=== PATIENT | female | born 1990 | race Caucasian/White ===

== ENCOUNTER 2020-03-14 09:28 | Emergency (ER) | payer OTHER, SELFPAY ==
--- NOTE | 2020-03-14 09:30 | XR_ITS ---
EXAMINATION: XR CHEST, PORTABLE CLINICAL INFORMATION: Shortness of breath COMPARISON: None TECHNIQUE: Portable upright AP view of the chest is obtained. FINDINGS: The lungs are clear. There is no airspace consolidation, pleural reaction, or effusion. The costophrenic sulci are clear. The heart is normal in size. The vascularity is normal. The hilar and mediastinal contours are unremarkable. There is mild dextrocurvature thoracic spine. Bilateral nipple piercings present. IMPRESSION: Lungs clear.
[2020-03-14 09:32] VITALS: BP 128/90; PULSE 97; RESP 24; TEMP 37.3; O2SAT 91; BMI 21.9
--- NOTE | 2020-03-14 09:48 | ED.ASTHMA ---
HPI - Asthma General Chief Complaint: Asthma Stated Complaint: SOB Time Seen by Provider: 03/14/20 09:30 Related Data Home Medications Medication Instructions Recorded Confirmed albuterol sulfate [Ventolin HFA] 2 puff INHALATION Q4H PRN 03/14/20 03/14/20 cetirizine [Zyrtec] 10 mg PO DAILY 03/14/20 03/14/20 doxycycline hyclate 100 mg PO BID 03/14/20 03/14/20 fluticasone furoate-vilanterol 1 inh INHALATION DAILY 03/14/20 03/14/20 [Breo Ellipta] fluticasone propionate [Flonase] 1 spray INTRANASAL DAILY 03/14/20 03/14/20 ibuprofen 600 mg PO TID PRN 03/14/20 03/14/20 montelukast [Singulair] 10 mg PO BEDTIME 03/14/20 03/14/20 prednisone 60 mg PO DAILY 03/14/20 03/14/20 Allergies Allergy/AdvReac Type Severity Reaction Status Date / Time No Known Allergies Allergy Unverified 02/29/20 19:51 [No Known Allergies*] Review of Systems Constitutional: Constitutional: Denies chills, Denies excessive sweating, Denies fever(s), Denies headache(s), Denies stops breathing during sleep, Denies weight gain and Denies weight loss Eyes: Eyes: Reports as per HPI ENT: Denies headache(s), Denies lip swelling, Denies nose pain and Denies sore throat Cardiovascular: Cardiovascular: Reports chest pain (with cough ) and Reports dyspnea Respiratory: Respiratory: Reports pain with cough and Reports dyspnea Gastrointestinal: Gastrointestinal: Denies abdominal pain Genitourinary: Genitourinary: Denies abnormal menses Integumentary/Breasts: Skin/Breast: Reports system reviewed and no additional complaints, except as docu Neurologic: Denies headache(s) Psychiatric: Psychiatric: Reports no additional psychiatric complaints Endocrine: Endocrine: Denies excessive sweating Hematologic/Lymphatic: Hematologic/Lymphatic: Reports no additional hematologic/lymphatic complaints Allergic/Immunologic: Allergic/Immunologic: Denies lip swelling PMFSH Past Medical History Attestation statement: The following information was validated with the patient. Medical History (Updated 03/14/20 @ 13:11 by Fabio Herrera NP) Asthma No known health problems Social History Social History Advance Directives: No Advance Directives Information Provided: No Physical Exam Vital Signs and I&O and Narrative: Vital Signs and I&O: Vital Signs Temp 99.1 F 03/14/20 09:32 Pulse 81 03/14/20 12:36 Resp 17 03/14/20 12:36 BP 112/67 03/14/20 12:36 Pulse Ox 97 03/14/20 12:36 Intake & Output 03/13/20 03/14/20 03/14/20 18:59 06:59 18:59 Intake Total 1050.000 / 1050.00 0 Balance 1050.000 / 1050.00 0 Weight 54.431 kg Intake: Intake, IV Amoun t 1050.000 / 1050.00 0 Magnesium Sulf ate/H2O 2 gm In 50.000 / 50.000 50 ml @ 50 mls /hr IV ONCE ONE Rx#:[id number] 0.9 % Sodium C hloride 1,000 ml 1000.00 / 1000.00 @ 999 mls/hr I VCONT .Q1H1M BJORN Rx#:[id number] Body Mass Index 21.9 Const: General: cooperative, in distress (Slight tachypnea, hypoxia at 90 % ra ) and anxious Orientation/consciousness: patient oriented x3 Limitations: no limitations HENMT: Head: Yes normal to inspection Ears: hearing grossly normal bilaterally Eyes: General: appearance normal, both eyes and all related structures Neck: Neck: Yes normal visual inspection Chest: Chest palpation & inspection: normal inspection of the chest Resp: Other: moderate respiratory distress Effort & Inspection: audible wheezes and Actively coughing Auscultation: wheezes Cardio: Jugular venous distension: no JVD Palpation: normal PMI Rate: tachycardic Rhythm: regular rhythm GI: Inspection: Yes normal to inspection Skin: General skin exam: no rashes or lesions noted Neuro: General: patient oriented x3 Extrem: General: Yes normal to inspection Psych: Appearance: grossly normal Course Course Hospital Course: interview 29-year-old female history significant for asthma with multiple hospitalizations most recently 2 weeks ago, normally goes to [facility]/ [facility]. She is being followed by pulmonology here Dr. Kim who she actually saw yesterday for shortness of breath she reports that in office she was hypoxic in the 70s she got treatment and she was started on some new medications. She shows me a medication list that shows prednisone, doxycycline. States she has been taking his however her shortness of breath has been getting worse. Upon arrival pulse ox 90 %, tachypneic speaking in couple word sentences. Does appear slightly anxious. Lung sounds diffuse wheezing and diminished in the bases. will need labs, chest x-ray, EKG. Will treat with IV fluids, IV magnesium 2 g, Solu-Medrol, hour long neb. She denies any recent URI symptoms. No signs or symptoms of sepsis at this time. No URI symptoms. . - complete hour long neb. Lung sounds still coerced. Pulse ox 91-93%. Will go ahead and give her 2nd hour long neb. Labs overall stable. Chest x-ray clear. No leukocytosis. Afebrile. No signs or symptoms of infection. Respiratory panel pending pain plan for admission. - Page placed to hospitalist services for admission. Who came to bedside to evaluate the patient. Patient completed 2nd hour long neb pulse ox 94-95% on room air. 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 Advised given her history of significant asthma she should be monitored for at least 24 hours and discharge May risk her outcome. She states she does not want to stay. Will sign AMA. Advised to return / call EMS right away if symptoms worsen. Will call her PCP /pulmonology for follow-up. MDM - Asthma Differential Diagnosis Differential diagnosis: Likely Acute exacerbation, Status asthmaticus, Acute asthmatic bronchitis and Pneumonia; Unlikely PE, Pulmonary edema systolic, Pulmonary edema dystolic, ARDS, Pneumothorax and Foreign body in trachea Medical Records Attestation: I reviewed the patient's medical records. Lab Data Result diagrams: 03/14/20 10:22 03/14/20 10:22 Labs: Lab Results 03/14/20 03/14/20 03/14/20 Range/Units 09:47 10:22 10:22 WBC 8.9 (4.8-10.8) X10*3/uL RBC 5.29 (4.20-5.50) X10*6/uL Hgb 16.7 H (12.0-16.0) g/dl Hct 50.3 H (37-47) % MCV 95.1 (80-98) fL MCH 31.6 (27.0-33.0) pg MCHC 33.2 (31.0-35.0) g/dl RDW 11.7 (11.0-16.0) % Plt Count 263 (160-400) X10*3/uL MPV 10.1 (9.4-12.3) fL Immature Gran % (Auto) 0.3 (0.0-0.4) % Neut % (Auto) 68.5 (45-73) % Lymph % (Auto) 21.9 (20-40) % Frio % (Auto) 7.4 (2-11) % Eos % (Auto) 1.6 (0-4) % Baso % (Auto) 0.3 (0-2) % Neut # (Auto) 6.1 (2.0-8.3) X10*3/uL Lymph # (Auto) 2.0 (1.2-4.9) X10*3/uL Frio # (Auto) 0.7 (0.1-1.2) X10*3/uL Eos # (Auto) 0.1 (0.0-0.4) X10*3/uL Baso # (Auto) 0.0 (0.0-0.2) X10*3/uL Abs Immat Gran (auto) 0.03 (0.00-0.03) X10*3/uL Absolute Nucleated RBC 0.000 (0.0-0.012) X10*3/uL Nucleated RBC % (auto) 0.0 (0.0-0.2) /100WBC Sodium (135-145) mmol/L Potassium (3.3-5.1) mmol/l Chloride (96-108) mmol/L Carbon Dioxide (22-29) mmol/L Anion Gap (12-20) BUN (9-16) mg/dL Creatinine (0.5-1.4) mg/dL Estim Creat Clear Calc Estimated GFR Random Glucose (60-115) mg/dL Lactic Acid 1.2 (0.5-2.0) mmol/L Calcium (8.4-10.2) mg/dL Troponin I High Sens (<3.5-17.0) ng/L Urine Color Urine Appearance Urine pH (5.0-8.0) Ur Specific Mcclelland (1.005-1.025) Urine Protein (NEG-TRACE) MG/DL Urine Glucose (UA) (NEG) MG/DL Urine Ketones (NEG) MG/DL Urine Blood (NEG) Urine Nitrite (NEG) Ur Leukocyte Esterase (NEG) Urine Test NEGATIVE (NEGATIVE) 03/14/20 03/14/20 03/14/20 Range/Units 10:22 10:22 11:22 WBC (4.8-10.8) X10*3/uL RBC (4.20-5.50) X10*6/uL Hgb (12.0-16.0) g/dl Hct (37-47) % MCV (80-98) fL MCH (27.0-33.0) pg MCHC (31.0-35.0) g/dl RDW (11.0-16.0) % Plt Count (160-400) X10*3/uL MPV (9.4-12.3) fL Immature Gran % (Auto) (0.0-0.4) % Neut % (Auto) (45-73) % Lymph % (Auto) (20-40) % Frio % (Auto) (2-11) % Eos % (Auto) (0-4) % Baso % (Auto) (0-2) % Neut # (Auto) (2.0-8.3) X10*3/uL Lymph # (Auto) (1.2-4.9) X10*3/uL Frio # (Auto) (0.1-1.2) X10*3/uL Eos # (Auto) (0.0-0.4) X10*3/uL Baso # (Auto) (0.0-0.2) X10*3/uL Abs Immat Gran (auto) (0.00-0.03) X10*3/uL Absolute Nucleated RBC (0.0-0.012) X10*3/uL Nucleated RBC % (auto) (0.0-0.2) /100WBC Sodium 141 (135-145) mmol/L Potassium 4.4 (3.3-5.1) mmol/l Chloride 103 (96-108) mmol/L Carbon Dioxide 26 (22-29) mmol/L Anion Gap 16 (12-20) BUN 9 (9-16) mg/dL Creatinine (0.5-1.4) mg/dL Estim Creat Clear Calc 80.2 Estimated GFR > 60 Random Glucose 92 (60-115) mg/dL Lactic Acid (0.5-2.0) mmol/L Calcium 10.1 (8.4-10.2) mg/dL Troponin I High Sens < 3.5 (<3.5-17.0) ng/L Urine Color YELLOW Urine Appearance CLEAR Urine pH 6.0 (5.0-8.0) Ur Specific Mcclelland 1.010 (1.005-1.025) Urine Protein NEG (NEG-TRACE) MG/DL Urine Glucose (UA) NEG (NEG) MG/DL Urine Ketones NEG (NEG) MG/DL Urine Blood NEG (NEG) Urine Nitrite NEG (NEG) Ur Leukocyte Esterase NEG (NEG) Urine Test (NEGATIVE) Critical Care Time Critical Care Time Critical Care Time: Yes Total Critical Care Time: 65 Attestation: required hour long nebs x2, multiple visits to bedside, close monitoring of respiratory status. Discharge Plan Discharge Clinical Impression: Asthma with acute exacerbation Qualifiers: Asthma severity: unspecified severity Asthma persistence: unspecified Qualified Code(s): J45.901 - Unspecified asthma with (acute) exacerbation Patient Disposition: Left Against Medical Advice Instructions: Asthma (ED) Prescriptions: No Action doxycycline hyclate 100 mg Capsule 100 mg PO BID RF: 0 cetirizine [Zyrtec] 10 mg Tablet 10 mg PO DAILY RF: 0 montelukast [Singulair] 10 mg Tablet 10 mg PO BEDTIME RF: 0 ibuprofen 600 mg Tablet 600 mg PO TID PRN (Reason: Pain (Scale Score 1-3)) RF: 0 albuterol sulfate [Ventolin HFA] 90 mcg/actuation Hfa Aerosol Inhaler 2 puff INHALATION Q4H PRN (Reason: Shortness Of Breath) RF: 0 fluticasone propionate [Flonase] 50 mcg/actuation Junior,Suspension 1 spray INTRANASAL DAILY RF: 0 Breo Ellipta 200-25 mcg/dose Blister With Device 1 inh INHALATION DAILY RF: 0 prednisone 20 mg Tablet 60 mg PO DAILY RF: 0
[2020-03-14] MEDS: methylPREDNISolone Sod Succ/PF 125 MG/2 ML VIAL IVPUSH (10:07)
[2020-03-14] MEDS: Ipratropium Bromide 0.5 MG/2.5 ML SOLUTION INHALE (10:07)
[2020-03-14] MEDS: Magnesium Sulfate/H2O 2 GM/50 ML PIGGYBACK IV (10:07)
[2020-03-14] MEDS: Albuterol Sulfate (0.083%) 2.5 MG/3 ML VIAL.NEB 7.5 MG INHALE (10:08)
[2020-03-14 10:30] LABS: MANUAL DIFF FLAG NO
[2020-03-14 10:33] LABS: Basophils Percent Auto 0.3 % (0-2); Eosinophils Absolute Auto 0.1 X10*3/uL (0.0-0.4); Eosinophils Percent Auto 1.6 % (0-4); Hematocrit 50.3 % (37-47); Hemoglobin 16.7 g/dl (12.0-16.0); Imm Gran Abs Auto 0.03 X10*3/uL (0.00-0.03); Imm Gran Pct Auto 0.3 % (0.0-0.4); Lymphocytes Percent Auto 21.9 % (20-40); Mean Corpuscular HGB Conc 33.2 g/dl (31.0-35.0); Mean Corpuscular Hemoglobin 31.6 pg (27.0-33.0); Mean Corpuscular Volume 95.1 fL (80-98); Mean Platelet Volume 10.1 fL (9.4-12.3); Monocytes Absolute Auto 0.7 X10*3/uL (0.1-1.2); Monocytes Percent Auto 7.4 % (2-11); Neutrophils Absolute Auto 6.1 X10*3/uL (2.0-8.3); Neutrophils Percent Auto 68.5 % (45-73); Platelet Count 263 X10*3/uL (160-400); Red Blood Count 5.29 X10*6/uL (4.20-5.50); Red Cell Distribution Width 11.7 % (11.0-16.0); White Blood Count 8.9 X10*3/uL (4.8-10.8)
[2020-03-14 10:56] LABS: Lactic Acid 1.2 mmol/L (0.5-2.0)
[2020-03-14 10:58] LABS: Anion Gap 16 (12-20); Blood Urea Nitrogen 9 mg/dL (9-16); Calcium 10.1 mg/dL (8.4-10.2); Carbon Dioxide 26 mmol/L (22-29); Chloride 103 mmol/L (96-108); Creatinine Clr Calc Pharmacy 80.2; Estimated Glomerular Filt Rate > 60; Glucose Random 92 mg/dL (60-115); Potassium 4.4 mmol/l (3.3-5.1); Sodium 141 mmol/L (135-145)
[2020-03-14 11:03] LABS: Troponin-I High Sensitivity < 3.5 ng/L (<3.5-17.0)
[2020-03-14 11:09] VITALS: BP 101/62; PULSE 76; RESP 20
[2020-03-14] MEDS: 0.9 % Sodium Chloride 1,000 ML 999 ML IVCONT (11:22)
[2020-03-14 11:31] LABS: Glucose Urine UA NEG (NEG); Leukocyte Esterase Urine NEG (NEG); Nitrite Urine NEG (NEG); Urine Blood NEG (NEG); Urine Ketones NEG (NEG); Urine Protein NEG (NEG-TRACE)
[2020-03-14 11:33] LABS: Appearance Urine CLEAR; Color Urine YELLOW
[2020-03-14 12:08] LABS: UPreg QC Valid YES; Urine Pregnancy NEGATIVE (NEGATIVE)
[2020-03-14 12:36] VITALS: BP 112/67; PULSE 81; RESP 17; O2SAT 97
[2020-03-14 13:15] LABS: Adenovirus PCR Not Detected (Not Detect.); Bordetella parapertussis PCR Not Detected (Not Detect.); Bordetella pertussis PCR Not Detected (Not Detect.); Chlamydia pneumoniae PCR Not Detected (Not Detect.); Coronavirus 229E PCR Not Detected (Not Detect.); Coronavirus HKU1 PCR Not Detected (Not Detect.); Coronavirus NL63 PCR Not Detected (Not Detect.); Coronavirus OC43 PCR Not Detected (Not Detect.); Human metapneumovirus PCR Not Detected (Not Detect.); Influenza A PCR Not Detected (Not Detect.); Influenza B PCR Not Detected (Not Detect.); Mycoplasma pneumoniae PCR Not Detected (Not Detect.); Parainfluenza 1 PCR Not Detected (Not Detect.); Parainfluenza 2 PCR Not Detected (Not Detect.); Parainfluenza 3 PCR Not Detected (Not Detect.); Parainfluenza 4 PCR Not Detected (Not Detect.); RSV PCR Not Detected (Not Detect.); Rhino/Enterovirus PCR Not Detected (Not Detect.); SARS-CoV-2 PCR Not Detected (Not Detect.)
[2020-03-14 13:19] VITALS: BP 126/76; PULSE 88; RESP 20; TEMP 36.8
[2020-03-14 13:39] LABS: RBC Urine 0 /HPF (0); Squamous Epithelial Cell Urine 1+ /LPF; WBC Urine 0 /HPF (0-4)
[2020-03-14 13:40] LABS: Mucus Urine 1+ /LPF; Renal Epithelial Cells Urine TRACE /LPF
== END 2020-03-14 13:29 | disposition left against medical advice (07) ==
PROVIDERS: Nurse Practitioner Primary Care; Emergency Provider Emergency Medicine; PCP Hospitalist
DX: J45.901 Unspecified asthma with (acute) exacerbation (principal)
CPT/HCPCS: 36415; 71045; 80048; 81001; 81025; 83605; 84484; 85025; 87040; 87633; 96361; 96374; 96375; 99283; 99291; J2930; J3475

== ENCOUNTER 2020-05-17 13:11 | Outpatient (REF) | payer OTHER, SELFPAY ==
--- NOTE | 2020-05-17 13:17 | XR_ITS ---
EXAMINATION: XR RIBS, RIGHT CLINICAL INFORMATION: Pain anterior right ribs COMPARISON: Chest radiographs 03/14/2020 TECHNIQUE: Frontal view chest and 3 views right ribs are obtained for a total of 4 views. FINDINGS: There are fractures right lateral fifth, sixth, seventh, and eighth ribs. No visible bony destructive process. The lungs are clear. There is no pneumothorax or pleural reaction. No effusion. No pneumomediastinum. The costophrenic sulci are clear. The heart is normal in size. The hilar and mediastinal contours are normal. There is mild curvature thoracic spine. No free air beneath the diaphragms. There are bilateral nipple piercings. XR/XR ribs RT min 3V w CXR1V IMPRESSION: 1. Right lateral rib fractures, 5th, 6th, 7th, and 8th. 2. No pneumothorax, airspace consolidation, or effusion. Mediastinal contours normal.
== END 2020-05-17 13:12 | disposition home or self-care (01) ==
LOC: HO.XRAY 13:11
PROVIDERS: PCP Hospitalist; Visit Provider Hospitalist
DX: S22.41XD Multiple fractures of ribs, right side, subsequent encounter for fracture with routine healing (principal)
CPT/HCPCS: 71101

== ENCOUNTER 2020-07-05 09:22 | Outpatient (REF) | payer MEDICAID, SELFPAY ==
--- NOTE | 2020-07-05 10:35 | XR_ITS ---
EXAMINATION: XR CHEST CLINICAL INFORMATION: J45.50 - Severe persistent asthma, uncomplicated COMPARISON: Chest and right ribs 05/17/2020, portable chest 03/14/2020 TECHNIQUE: 2 views of the chest were obtained. FINDINGS: There is mild coarsening central bronchiolar markings. No bronchiectasis. No airspace solid lesion or groundglass opacity or effusion. The heart is normal in size. The hilar and mediastinal contours are normal. Again, there is dextrocurvature thoracic spine and bilateral nipple piercings. XR/XR chest 2V IMPRESSION: Mild coarsening central bronchiolar markings. Lungs clear.
[2020-07-05 10:44] LABS: MANUAL DIFF FLAG NO
[2020-07-05 10:49] LABS: Basophils Absolute Auto 0.1 X10*3/uL (0.0-0.2); Basophils Percent Auto 1.6 % (0-2); Eosinophils Percent Auto 13.5 % (0-4); Hematocrit 47.9 % (37-47); Hemoglobin 16.5 g/dl (12.0-16.0); Imm Gran Abs Auto 0.04 X10*3/uL (0.00-0.03); Imm Gran Pct Auto 0.5 % (0.0-0.4); Lymphocytes Absolute Auto 1.4 X10*3/uL (1.2-4.9); Lymphocytes Percent Auto 18.9 % (20-40); Mean Corpuscular HGB Conc 34.4 g/dl (31.0-35.0); Mean Corpuscular Hemoglobin 31.1 pg (27.0-33.0); Mean Corpuscular Volume 90.4 fL (80-98); Mean Platelet Volume 10.4 fL (9.4-12.3); Monocytes Absolute Auto 0.5 X10*3/uL (0.1-1.2); Monocytes Percent Auto 7.1 % (2-11); Neutrophils Absolute Auto 4.4 X10*3/uL (2.0-8.3); Neutrophils Percent Auto 58.4 % (45-73); Platelet Count 225 X10*3/uL (160-400); Red Cell Distribution Width 11.9 % (11.0-16.0); White Blood Count 7.5 X10*3/uL (4.8-10.8)
[2020-07-05 11:13] LABS: Anion Gap 13 (12-20); Blood Urea Nitrogen 7 mg/dL (9-16); Calcium 8.9 mg/dL (8.4-10.2); Carbon Dioxide 29 mmol/L (22-29); Chloride 100 mmol/L (96-108); Estimated Glomerular Filt Rate > 60; Glucose Random 103 mg/dL (60-115); Potassium 3.7 mmol/l (3.3-5.1); Sodium 138 mmol/L (135-145)
== END 2020-07-05 09:23 | disposition home or self-care (01) ==
LOC: HO.LAB 09:22
PROVIDERS: PCP Hospitalist; Visit Provider Internal Medicine Pulmonary Disease
DX: J45.50 Severe persistent asthma, uncomplicated (principal); R10.9 Unspecified abdominal pain; Z91.09 Other allergy status, other than to drugs and biological substances
CPT/HCPCS: 36415; 71046; 80048; 82785; 85025; 86003; 99212

== ENCOUNTER → 2020-11-04 13:30 | Outpatient (BNVA) | payer MEDICAID, SELFPAY | PROVIDERS: PCP Internal Medicine; Visit Provider Internal Medicine Pulmonary Disease | DX: J45.50 Severe persistent asthma, uncomplicated (principal); Z91.09 Other allergy status, other than to drugs and biological substances | CPT/HCPCS: 99212 ==

== ENCOUNTER → 2021-01-08 12:57 | Outpatient (BNVA) | payer MEDICAID, SELFPAY | PROVIDERS: PCP Family Medicine Adult Medicine; Visit Provider Internal Medicine Pulmonary Disease | DX: J45.50 Severe persistent asthma, uncomplicated (principal); Z79.899 Other long term (current) drug therapy; Z91.09 Other allergy status, other than to drugs and biological substances | CPT/HCPCS: 99212 ==

== ENCOUNTER → 2021-05-27 13:26 | Outpatient (BNVA) | payer MEDICAID, SELFPAY | PROVIDERS: PCP Internal Medicine; Visit Provider Internal Medicine Pulmonary Disease | DX: J45.50 Severe persistent asthma, uncomplicated (principal); Z91.09 Other allergy status, other than to drugs and biological substances | CPT/HCPCS: 99212 ==

== ENCOUNTER → 2021-06-16 13:28 | Outpatient (BNVA) | payer MEDICAID, SELFPAY | PROVIDERS: PCP Internal Medicine; Visit Provider Internal Medicine | DX: J45.50 Severe persistent asthma, uncomplicated (principal); J30.9 Allergic rhinitis, unspecified; Z91.09 Other allergy status, other than to drugs and biological substances | CPT/HCPCS: 99212 ==

== ENCOUNTER → 2021-08-06 13:05 | Outpatient (BNVA) | payer MEDICAID, SELFPAY | PROVIDERS: PCP Internal Medicine; Visit Provider Internal Medicine | DX: J30.9 Allergic rhinitis, unspecified (principal); J45.50 Severe persistent asthma, uncomplicated; J45.901 Unspecified asthma with (acute) exacerbation | CPT/HCPCS: 94640; 96372; 99212; J2930 ==

== ENCOUNTER → 2021-10-09 13:01 | Outpatient (BNVA) | payer MEDICAID, SELFPAY | PROVIDERS: PCP Internal Medicine; Visit Provider Internal Medicine Pulmonary Disease | DX: O99.511 Diseases of the respiratory system complicating pregnancy, first trimester (principal); J45.51 Severe persistent asthma with (acute) exacerbation; Z91.09 Other allergy status, other than to drugs and biological substances; Z3A.00 Weeks of gestation of pregnancy not specified; Z79.899 Other long term (current) drug therapy | CPT/HCPCS: 99212 ==

== ENCOUNTER → 2021-11-25 11:16 | Outpatient (BNVA) | payer MEDICAID, SELFPAY | PROVIDERS: PCP Internal Medicine; Visit Provider Internal Medicine Pulmonary Disease | DX: J45.51 Severe persistent asthma with (acute) exacerbation (principal); Z91.09 Other allergy status, other than to drugs and biological substances | CPT/HCPCS: 99212 ==

== ENCOUNTER 2023-03-25 09:17 | Outpatient (REF) | payer MEDICAID, SELFPAY ==
--- NOTE | 2023-03-25 09:20 | EMG_ITS ---
Bilateral tibial and peroneal motor studies were performed. Bilateral superficial peroneal and sural sensory studies were performed. Tibial H reflexes were obtained and EMG study was performed. IMPRESSION: This is an unremarkable study with no evidence of neuropathy or radiculopathy affecting lower extremities. MD BEATA Berkowitz/MODL / [id number]
== END 2023-03-25 09:18 | disposition home or self-care (01) ==
LOC: HO.NEURO 09:17
PROVIDERS: PCP Internal Medicine; Visit Provider Internal Medicine
DX: M79.604 Pain in right leg (principal); M79.605 Pain in left leg; R20.0 Anesthesia of skin; R20.2 Paresthesia of skin
CPT/HCPCS: 95886; 95911